=== PATIENT | male | born 1985 | race Caucasian/White ===

== ENCOUNTER 2021-05-17 22:10 | Emergency (ER) | payer OTHER ==
[~2021-05-17] VITALS: Ht 180.3 cm; Wt 108.9 kg
[2021-05-17 22:15] VITALS: BP_SYST 102
--- NOTE | 2021-05-17 22:15 | NUR ---
Patient triaged and placed in the tent. VSS and patient appears in no acute distress at this time, awaiting available bed, and MD notified of need for MSE.
--- NOTE | 2021-05-18 | NUR ---
call pt name in the tent.No answer.
--- NOTE | 2021-05-18 00:05 | NUR ---
call pt name in the tent.No answer.
--- NOTE | 2021-05-18 00:10 | NUR ---
call pt name in the tent.No answer.
== END 2021-05-18 00:10 | disposition left against medical advice (07) ==
LOC: SED 22:10
DX: R06.02 Shortness of breath (principal); Z53.21 Procedure and treatment not carried out due to patient leaving prior to being seen by health care provider

== ENCOUNTER 2021-05-18 13:29 | Emergency (ER) | payer OTHER, SELFPAY ==
[~2021-05-18] VITALS: Ht 180.3 cm; Wt 108.9 kg
--- NOTE | 2021-05-18 13:45 | NUR ---
Pt brought by self, A&O x 4, pt presents to ER with cough/ congestion, skin pink and warm, VSS, respirations even and unlabored, cap refill <3.
[2021-05-18 13:53] VITALS: BP_SYST 159
--- NOTE | 2021-05-18 14:10 | NUR ---
Dr Be evaluating patient at bedside
[2021-05-18 15:26] VITALS: BP_SYST 152
--- NOTE | 2021-05-18 15:27 | NUR ---
Patient given written and verbal discharge instructions and verbalizes understanding. ER MD discussed with patient the results and treatment provided. Patient in stable condition. ID arm band removed. IV catheter removed intact and dressing applied, no active bleeding. No Rx given. Patient educated on pain management and to follow up with PMD. Pain Scale 0/10 . Opportunity for questions provided and answered. Medication side effect fact sheet provided.
== END 2021-05-18 15:26 | disposition home or self-care (01) ==
LOC: SED 13:29
DX: R06.02 Shortness of breath (principal); Z20.822 Contact with and (suspected) exposure to COVID-19
CPT/HCPCS: 99283; C9803; U0003